=== PATIENT | male | born 1960 | race Caucasian/White ===

== ENCOUNTER → 2016-12-03 | Outpatient (CLI) | payer BC ==
--- NOTE | 2016-12-03 15:47 | US ---
EXAMINATION TYPE: US carotid duplex BILAT DATE OF EXAM: 12/03/2016 COMPARISON: US 2016 CLINICAL HISTORY: Right Mild Stenosis I65.21. Patient smokes cigars x years. EXAM MEASUREMENTS: RIGHT: Peak Systolic Velocity (PSV) cm/sec ----- Right CCA: 71.0 ----- Right ICA: 159.4 ----- Right ECA: 117.3 ICA/CCA ratio: 2.2 RIGHT: End Diastole cm/sec ----- Right CCA: 28.1 ----- Right ICA: 75.7 ----- Right ECA: 22.0 LEFT: Peak Systolic Velocity (PSV) cm/sec ----- Left CCA: 77.6 ----- Left ICA: 90.7 ----- Left ECA: 117.2 ICA/CCA ratio: 1.2 LEFT: End Diastole cm/sec ----- Left CCA: 21.5 ----- Left ICA: 37.8 ----- Left ECA: 23.3 VERTEBRALS (direction of flow): Right Vertebral: Antegrade Left Vertebral: Antegrade Rhythm: Normal Moderate intimal wall changes are noted at bilateral carotid bifurcation with abnormally elevated PSV at right ICA proximally. Turbulent flow is within the right proximal internal carotid artery distal to the atheromatous plaqui ng. Left internal carotid artery plaquing is also noted a some plaquing and intimal thickening is wit hin the bilateral common carotid arteries. IMPRESSION: 1. Atheromatous plaquing bilaterally. This can be compatible with flow-limiting stenosis between 50-6 9% in the right internal carotid artery and less than 50% left internal carotid artery. Correlate wit h the patient's symptoms. Criteria for Assigning % of Stenosis / Diameter reduction (Estimation based on the indirect measurements of the internal carotid artery velocities (ICA PSV). 1. Normal (no stenosis)=ICA PSV < 125 cm/s: ratio < 2.0: ICA EDV<40 cm/s. 2. Less than 50% stenosis=ICA PSV < 125 cm/s: ratio < 2.0: ICA EDV<40 cm/s. 3. 50 to 69% stenosis=ICA PSV of 125 to 230 cm/s: ration 2.0 ? 4.0: ICA EDV 40-100 cm/s. 4. Greater than 70% stenosis to near occlusion= ICA PSV > 230 cm/s: ratio > 4.0: ICA EDV > 100 cm/s. 5. Near occlusion= ICA PSV velocities may be low or undetectable: variable ratio and ICA EDV. 6. Total occlusion=unable to detect flow.
== END | disposition home or self-care (01) ==
LOC: RADUSWWP 14:08
PROVIDERS: ATTEND Family Medicine
DX: I65.23 Occlusion and stenosis of bilateral carotid arteries (principal)
CPT/HCPCS: 93880

== ENCOUNTER → 2018-12-13 | Outpatient (CLI) | payer BC ==
--- NOTE | 2018-12-14 07:10 | US ---
EXAMINATION TYPE: US carotid duplex BILAT DATE OF EXAM: 12/13/2018 COMPARISON: US 12/03/2016 CLINICAL HISTORY: I65.21Occlusion and Stenosis of Right Carotid. EXAM MEASUREMENTS: RIGHT: Peak Systolic Velocity (PSV) cm/sec ----- Right CCA: 66.9 ----- Right ICA: 268.4 ----- Right ECA: 137.8 ICA/CCA ratio: 4.0 RIGHT: End Diastole cm/sec ----- Right CCA: 19.7 ----- Right ICA: 115.1 ----- Right ECA: 24.7 LEFT: Peak Systolic Velocity (PSV) cm/sec ----- Left CCA: 89.7 ----- Left ICA: 123.7 ----- Left ECA: 122.1 ICA/CCA ratio: 1.4 LEFT: End Diastole cm/sec ----- Left CCA: 28.9 ----- Left ICA: 49.4 ----- Left ECA: 22.0 VERTEBRALS (direction of flow): Right Vertebral: Antegrade Left Vertebral: Antegrade Rhythm: Normal Severe atherosclerotic changes seen in right bulb and ICA suggestive of >70% stenosis. Left ICA shows moderate atherosclerotic changes without borderline velocities. IMPRESSION: 1. Increased degree of stenosis within the right internal carotid artery in comparison to the prior 2 017. There is now greater than 70% stenosis within the right internal carotid artery. 2. Borderline values that would indicate stenosis of 50-69% within the left internal carotid artery. Criteria for Assigning % of Stenosis / Diameter reduction (Estimation based on the indirect measurements of the internal carotid artery velocities (ICA PSV). 1. Normal (no stenosis)=ICA PSV < 125 cm/s: ratio < 2.0: ICA EDV<40 cm/s. 2. Less than 50% stenosis=ICA PSV < 125 cm/s: ratio < 2.0: ICA EDV<40 cm/s. 3. 50 to 69% stenosis=ICA PSV of 125 to 230 cm/s: ration 2.0 ? 4.0: ICA EDV 40-100 cm/s. 4. Greater than 70% stenosis to near occlusion= ICA PSV > 230 cm/s: ratio > 4.0: ICA EDV > 100 cm/s. 5. Near occlusion= ICA PSV velocities may be low or undetectable: variable ratio and ICA EDV. 6. Total occlusion=unable to detect flow.
== END | disposition home or self-care (01) ==
LOC: RADUSWWP 16:43
PROVIDERS: ATTEND Family Medicine
DX: I65.23 Occlusion and stenosis of bilateral carotid arteries (principal)
CPT/HCPCS: 93880

== ENCOUNTER 2019-01-24 09:43 | Inpatient (IN) | payer BC ==
[2019-01-24] MEDS ORDERED: HYDROmorphone 1 MG/ML 1 ML SYRINGE IVP STA (10:24)
[2019-01-24] MEDS ORDERED: ONDANSETRON 4 MG/2 ML VIAL IVP STA (10:24)
--- NOTE | 2019-01-24 10:27 | ED ---
General Adult HPI - General Chief complaint: Abdominal Pain Stated complaint: ABDOMINAL PAIN Time Seen by Provider: 01/24/19 09:55 Source: patient, RN notes reviewed, old records reviewed Mode of arrival: wheelchair Limitations: no limitations - History of Present Illness Initial comments: This is a 58-year-old male who presents to the emergency department complaining of right lower quadrant abdominal pain since Tuesday. Patient states he has been nauseous but no vomiting. Patient denies any fever chills per patient states he has been able to eat. Patient states he had one bout of diarrhea that was when he arrived to the emergency department. States she's only had an umbilical hernia surgery on his abdomen. Patient denies any back pain. Patient denies any dysuria hematuria urinary frequency. Patient denies chest pain difficulty breathing or shortness of breath. - Related Data Home Medications Medication Instructions Recorded Confirmed Aspirin 81 mg PO DAILY 02/25/17 01/24/19 Atenolol/Chlorthalidone 1 tab PO DAILY 02/25/17 01/24/19 [Atenolol-Chlorthalidone 50-25] Gemfibrozil [Lopid] 600 mg PO AC-BID 02/25/17 01/24/19 [place]-3 Fatty Acids/Fish Oil [Fish 1 cap PO HS 02/25/17 01/24/19 Oil 1,000 mg Softgel] Omeprazole [PriLOSEC] 20 mg PO AC-BRKFST 02/25/17 01/24/19 Simvastatin [Zocor] 40 mg PO DAILY 02/25/17 01/24/19 Hydrocodone/Acetaminophen [[place] 1 tab PO TID 01/24/19 01/24/19 7.5-325] [place]-3 Fatty Acids/Fish Oil [Fish 2 cap PO QAM 01/24/19 01/24/19 Oil 1,000 mg Softgel] Potassium Chloride ER [K-Dur 10] 10 meq PO DAILY 01/24/19 01/24/19 Sertraline [Zoloft] 50 mg PO DAILY 01/24/19 01/24/19 metFORMIN HCL ER [Glucophage Xr] 1,000 mg PO DAILY 01/24/19 01/24/19 Allergies Allergy/AdvReac Type Severity Reaction Status Date / Time Penicillins Allergy Unknown Verified 01/24/19 11:34 Childhood meperidine [From Demerol] AdvReac Nausea & Verified 01/24/19 11:34 Vomiting Review of Systems ROS Statement: Those systems with pertinent positive or pertinent negative responses have been documented in the HPI. ROS Other: All systems not noted in ROS Statement are negative. Past Medical History Past Medical History: COPD, Diabetes Mellitus, GERD/Reflux, Hyperlipidemia, Hypertension, Musculoskeletal Disorder Additional Past Medical History / Comment(s): Sciatica, recent bout of colitis- finishing antibiotic, "borderline" diabetic History of Any Multi-Drug Resistant Organisms: None Reported Past Surgical History: Hernia Repair Additional Past Surgical History / Comment(s): Colonoscopy Past Anesthesia/Blood Transfusion Reactions: Postoperative Nausea & Vomiting (PONV) Smoking Status: Current every day smoker Past Alcohol Use History: Occasional Past Drug Use History: None Reported - Past Family History Mother Family Medical History: No Reported History General Exam - General Exam Comments Initial Comments: GENERAL: Patient is well-developed and well-nourished. Patient is nontoxic and well- hydrated and is in moderate distress ENT: Neck is soft and supple. No significant lymphadenopathy is noted. Oropharynx is clear. Moist mucous membranes. Neck has full range of motion without eliciting any pain. EYES: The sclera were anicteric and conjunctiva were pink and moist. Extraocular movements were intact and pupils were equal round and reactive to light. Eyelids were unremarkable. PULMONARY: Unlabored respirations. Good breath sounds bilaterally. No audible rales rhonchi or wheezing was noted. CARDIOVASCULAR: There is a regular rate and rhythm without any murmurs gallops or rubs. ABDOMEN: Patient has right lower quadrant abdominal pain and rebound. SKIN: Skin is clear with no lesions or rashes and otherwise unremarkable. NEUROLOGIC: Patient is alert and oriented x3. Cranial nerves II through XII are grossly intact. Motor and sensory are also intact. Normal speech, volume and content. Symmetrical smile. MUSCULOSKELETAL: Normal extremities with adequate strength and full range of motion. No lower extremity swelling or edema. No calf tenderness. LYMPHATICS: No significant lymphadenopathy is noted PSYCHIATRIC: Normal psychiatric evaluation. Limitations: no limitations Course Vital Signs 01/24/19 09:51 Temperature 98.0 F Pulse Rate 89 Respiratory 18 Rate Blood Pressure 113/86 O2 Sat by Pulse 98 Oximetry Medical Decision Making - Medical Decision Making CAT scan of the pelvis shows diverticulitis with microperforation no signs of abscess. Appendix is normal. I started the patient on antibiotics. I spoke with Dr. Nolan agreed to admit the patient admitted the patient wrote admitting orders. - Lab Data Result diagrams: 01/24/19 10:30 01/24/19 10:30 Lab Results 01/24/19 01/24/19 01/24/19 Range/Units 10:30 10:30 10:30 WBC 11.0 H (3.8-10.6) k/uL RBC 5.30 (4.30-5.90) m/uL Hgb 17.6 H (13.0-17.5) gm/dL Hct 48.7 (39.0-53.0) % MCV 92.0 (80.0-100.0) fL MCH 33.3 (25.0-35.0) pg MCHC 36.2 (31.0-37.0) g/dL RDW 13.1 (11.5-15.5) % Plt Count 264 (150-450) k/uL Neutrophils % 82 % Lymphocytes % 12 % Monocytes % 4 % Eosinophils % 1 % Basophils % 0 % Neutrophils # 9.0 H (1.3-7.7) k/uL Lymphocytes # 1.3 (1.0-4.8) k/uL Monocytes # 0.4 (0-1.0) k/uL Eosinophils # 0.1 (0-0.7) k/uL Basophils # 0.0 (0-0.2) k/uL Sodium 138 (137-145) mmol/L Potassium 3.5 (3.5-5.1) mmol/L Chloride 102 (98-107) mmol/L Carbon Dioxide 23 (22-30) mmol/L Anion Gap 13 mmol/L BUN 11 (9-20) mg/dL Creatinine 0.60 L (0.66-1.25) mg/dL Est GFR (CKD-EPI)AfAm >90 (>60 ml/min/1.73 sqM) Est GFR (CKD-EPI)NonAf >90 (>60 ml/min/1.73 sqM) Glucose 128 H (74-99) mg/dL Plasma Lactic Acid Wes 1.3 (0.7-2.0) mmol/L Calcium 9.8 (8.4-10.2) mg/dL Total Bilirubin 1.2 (0.2-1.3) mg/dL AST 27 (17-59) U/L ALT 21 (21-72) U/L Alkaline Phosphatase 122 (38-126) U/L Total Protein 7.8 (6.3-8.2) g/dL Albumin 4.4 (3.5-5.0) g/dL Amylase 42 (30-110) U/L Lipase 67 (23-300) U/L Urine Color Urine Appearance (Clear) Urine pH (5.0-8.0) Ur Specific [place] (1.001-1.035) Urine Protein (Negative) Urine Glucose (UA) (Negative) Urine Ketones (Negative) Urine Blood (Negative) Urine Nitrite (Negative) Urine Bilirubin (Negative) Urine Urobilinogen (<2.0) mg/dL Ur Leukocyte Esterase (Negative) Urine RBC (0-5) /hpf Urine WBC (0-5) /hpf 01/24/19 Range/Units 10:57 WBC (3.8-10.6) k/uL RBC (4.30-5.90) m/uL Hgb (13.0-17.5) gm/dL Hct (39.0-53.0) % MCV (80.0-100.0) fL MCH (25.0-35.0) pg MCHC (31.0-37.0) g/dL RDW (11.5-15.5) % Plt Count (150-450) k/uL Neutrophils % % Lymphocytes % % Monocytes % % Eosinophils % % Basophils % % Neutrophils # (1.3-7.7) k/uL Lymphocytes # (1.0-4.8) k/uL Monocytes # (0-1.0) k/uL Eosinophils # (0-0.7) k/uL Basophils # (0-0.2) k/uL Sodium (137-145) mmol/L Potassium (3.5-5.1) mmol/L Chloride (98-107) mmol/L Carbon Dioxide (22-30) mmol/L Anion Gap mmol/L BUN (9-20) mg/dL Creatinine (0.66-1.25) mg/dL Est GFR (CKD-EPI)AfAm (>60 ml/min/1.73 sqM) Est GFR (CKD-EPI)NonAf (>60 ml/min/1.73 sqM) Glucose (74-99) mg/dL Plasma Lactic Acid Wes (0.7-2.0) mmol/L Calcium (8.4-10.2) mg/dL Total Bilirubin (0.2-1.3) mg/dL AST (17-59) U/L ALT (21-72) U/L Alkaline Phosphatase (38-126) U/L Total Protein (6.3-8.2) g/dL Albumin (3.5-5.0) g/dL Amylase (30-110) U/L Lipase (23-300) U/L Urine Color Yellow Urine Appearance Clear (Clear) Urine pH 7.5 (5.0-8.0) Ur Specific [place] 1.013 (1.001-1.035) Urine Protein 1+ H (Negative) Urine Glucose (UA) Negative (Negative) Urine Ketones Negative (Negative) Urine Blood Negative (Negative) Urine Nitrite Negative (Negative) Urine Bilirubin Negative (Negative) Urine Urobilinogen <2.0 (<2.0) mg/dL Ur Leukocyte Esterase Negative (Negative) Urine RBC 1 (0-5) /hpf Urine WBC <1 (0-5) /hpf Disposition Clinical Impression: Diverticulitis of colon with perforation Disposition: ADMITTED IP TO THIS HOSP Referrals: Josee Rahman DO [Primary Care Provider] - 1-2 days Time of Disposition: 11:50
[2019-01-24 10:37] LABS: Basophils % (A) 0 %; Eosinophils # (A) 0.1 k/uL (0-0.7); Eosinophils % (A) 1 %; HCT 48.7 % (39.0-53.0); HGB 17.6 gm/dL (13.0-17.5); Lymphocytes # (A) 1.3 k/uL (1.0-4.8); Lymphocytes % (A) 12 %; MCH 33.3 pg (25.0-35.0); MCHC 36.2 g/dL (31.0-37.0); Mean Platelet Volume 5.8; Monocytes # (A) 0.4 k/uL (0-1.0); Monocytes % (A) 4 %; Neutrophils % (A) 82 %; Platelet Count 264 k/uL (150-450); RDW 13.1 % (11.5-15.5)
[2019-01-24 10:57] LABS: ALT 21 U/L (21-72); AST 27 U/L (17-59); African American GFR (CKD) >90 (>60 ml/min/1.73 sqM); Albumin 4.4 g/dL (3.5-5.0); Alkaline Phosphatase 122 U/L (38-126); Amylase 42 U/L (30-110); Anion Gap 13 mmol/L; Blood Urea Nitrogen 11 mg/dL (9-20); Calcium 9.8 mg/dL (8.4-10.2); Carbon Dioxide 23 mmol/L (22-30); Chloride 102 mmol/L (98-107); Glucose 128 mg/dL (74-99); Potassium 3.5 mmol/L (3.5-5.1); Sodium 138 mmol/L (137-145); Total Bilirubin 1.2 mg/dL (0.2-1.3); Total Protein 7.8 g/dL (6.3-8.2)
[2019-01-24 11:09] LABS: Appearance,Urine Clear (Clear); Bilirubin,Urine Negative (Negative); Blood,Urine Negative (Negative); Color,Urine Yellow; Glucose,Urine (UA) Negative (Negative); Ketones,Urine Negative (Negative); Leukocyte Esterase,Urine Negative (Negative); Nitrite,Urine Negative (Negative); PH, Urine 7.5 (5.0-8.0); Protein,Urine 1+ (Negative); RBC,Urine 1 /hpf (0-5); Specific Gravity,Urine 1.013 (1.001-1.035); Urobilinogen,Urine <2.0 mg/dL (<2.0)
--- NOTE | 2019-01-24 11:46 | CT ---
EXAMINATION TYPE: CT abdomen pelvis w con DATE OF EXAM: 01/24/2019 COMPARISON: Prior CT dated 10/01/2011 HISTORY: Abdominal pain CT DLP: 983.6 mGycm Automated exposure control for dose reduction was used. TECHNIQUE: Helical acquisition of images from the lung bases through the pelvis have been completed. CONTRAST: Performed without Oral Contrast and with IV Contrast, patient injected with 100 mL of Isovue 300. FINDINGS: LUNG BASES: Bandlike areas of increased attenuation at the lung bases likely reflect scarring, no ple ural or pericardial effusion. There are coronary artery calcifications. AORTA: No significant abnormality is appreciated. LIVER/GB: Liver shows low attenuation. Gallbladder is normal.. PANCREAS: No significant abnormality is seen. SPLEEN: No significant abnormality is seen. ADRENALS: No significant abnormality is seen. KIDNEYS: Punctate nonobstructive calculus present at the midpole the right kidney measures 3 mm, left kidney upper pole shows a small cortical cyst measuring 12 mm REPRODUCTIVE ORGANS: Prostate shows associated calcification BOWEL: The appendix is normal. The sigmoid colon shows abnormal wall thickening within the pelvis, t here is pericolonic inflammatory change present. Punctate foci of air are present in an extraluminal location. Duodenal diverticulum is present with air-fluid level. FREE AIR: No Free Air visible. ASCITES: None visible. PELVIC ADENOPATHY: None visualized. RETROPERITONEAL ADENOPATHY: No Retroperitoneal Adenopathy visible. URINARY BLADDER: Urinary bladder is not distended and shows a thickened wall, difficult to exclude c ystitis versus possible chronic bladder outlet obstruction, lack of distention OSSEOUS STRUCTURES: Bilateral spondylolysis present L5, there is anterolisthesis grade 1 L5-S1, loss of disc height and disc bulge compatible with degenerative disc disease, there is multilevel spondylo sis IMPRESSION: POSSIBLE DIVERTICULITIS WITH MICROPERFORATION, NO EVIDENT ABSCESS. POSSIBLE COLITIS. NONOBSTRUCTIVE R IGHT NEPHROLITHIASIS. PROBABLE HEPATIC STEATOSIS.
[2019-01-24] MEDS ORDERED: LEVOFLOXACIN 750MG-D5W PMX 750 MG in DEXTROSE/WATER 1 150ML.BAG IVPB STA (11:49)
[2019-01-24] MEDS ORDERED: SODIUM CHLORIDE 0.9% 1,000 ML IV ONE (11:51)
[2019-01-24] MEDS ORDERED: ONDANSETRON 4 MG/2 ML VIAL IVP PRN (11:54)
[2019-01-24] MEDS: HYDROmorphone 1 MG/ML 1 ML SYRINGE IVP PRN ×3 (14:23→22:37)
[2019-01-24] MEDS: SODIUM CHLORIDE 0.9% 1,000 ML IV SCH ×2 (14:37→22:39)
[2019-01-24] MEDS ORDERED: LORazepam 2 MG/ML INJ IV PRN ×3 (17:24)
[2019-01-24] MEDS: THIAMINE 100 MG TAB PO SCH (18:07)
[2019-01-24] MEDS: INSULIN ASPART (NovoLOG) 100 UNIT/ML VIAL SQ SCH ×2 (18:12→20:58)
[2019-01-24 18:13] LABS: Glucose,Whole Blood 95 mg/dL (75-99)
[2019-01-24] MEDS: PANTOPRAZOLE 40 MG/10 ML VIAL IVP SCH (20:17)
[2019-01-24] MEDS: NICOTINE 21MG/24HR PATCH TRANSDERM SCH (20:17)
[2019-01-24 20:46] VITALS: RESP 16
[2019-01-24 20:54] LABS: Glucose,Whole Blood 101 mg/dL (75-99)
--- NOTE | 2019-01-24 22:14 | P.HPIM ---
History of Present Illness H&P Date: 01/24/19 Chief Complaint: Abdominal pain Patient is a 58-year-old male with a known history of hypertension, diabetes type 2 [id number], bilateral diabetic peripheral neuropathy, diverticulosis, GERD, hearing disorder/deafness and history of lower GI bleed and chronic back pain came to ER with complaints of abdominal pain mainly right lower quadrant for the past 2-3 days. Patient did have diarrhea about a week ago. Currently diarrhea resolved now. Does have subjective fevers and chills last night and patient has been having worsening renal which made him to come to ER. Denied any blood in the stool. No dysuria or hematuria recur Denied any chest pain or shortness of breath. No cough or sputum production. Patient does have chronic low back pain. Patient does smoke on a daily basis. Patient does have a history of colonoscopy and benign polypectomy. WBC 11.0 CT of the abdomen pelvis showed possible diverticulitis with microperforation. No evident abscess. Possible colitis. Nonobstructive right nephrolithiasis. Possible hepatic steatosis. Review of Systems Constitutional: Patient does have subjective fever or chills . No generalized weakness or weight loss. Abdomen: Patient does have nausea and abdominal pain. No diarrhea. No vomiting.. Cardiovascular: Patient denies any chest pain or short of breath no palpitations. Respiratory: patient denied any cough is from production. No shortness of breath Neurologic: Patient denied any numbness or tingling headache. Musculoskeletal: Patient denies any complaints of joint swelling or deformity. Skin: Negative Psychiatric: Negative Endocrine: No heat or cold intolerance. No recent weight gain. Genitourinary: No dysuria or hematuria. All other 14 point ROS negative except the above Past Medical History Past Medical History: COPD, Diabetes Mellitus, GERD/Reflux, GI Bleed, Hearing Disorder / Deafness, Hyperlipidemia, Hypertension, Musculoskeletal Disorder Additional Past Medical History / Comment(s): NIDDM type II, neuropathy bilateral feet, diverticular disease, cecal polyp-benign, lower GI bleed, chronic low back pain (herniated discs) with R sided sciatica, R ruptured eardrum-just finished antibiotic. History of Any Multi-Drug Resistant Organisms: None Reported Past Surgical History: Hernia Repair Additional Past Surgical History / Comment(s): Colonoscopies/polypectomy, umbilical hernia repair, back injections. Past Anesthesia/Blood Transfusion Reactions: Postoperative Nausea & Vomiting (PONV) Smoking Status: Current every day smoker - Past Family History Mother Family Medical History: Vascular Disorder Additional Family Medical History / Comment(s): Mother from a renal aneurysm at the age of 67yrs. Father Family Medical History: Diabetes Mellitus Additional Family Medical History / Comment(s): Father at the age of 79yrs. Medications and Allergies Home Medications Medication Instructions Recorded Confirmed Type Aspirin 81 mg PO DAILY 02/25/17 01/24/19 History Atenolol/Chlorthalidone 1 tab PO DAILY 02/25/17 01/24/19 History [Atenolol-Chlorthalidone 50-25] Gemfibrozil [Lopid] 600 mg PO AC-BID 02/25/17 01/24/19 History [place]-3 Fatty Acids/Fish Oil [Fish 1 cap PO HS 02/25/17 01/24/19 History Oil 1,000 mg Softgel] Omeprazole [PriLOSEC] 20 mg PO AC-BRKFST 02/25/17 01/24/19 History Simvastatin [Zocor] 40 mg PO DAILY 02/25/17 01/24/19 History Hydrocodone/Acetaminophen [[place] 1 tab PO TID 01/24/19 01/24/19 History 7.5-325] [place]-3 Fatty Acids/Fish Oil [Fish 2 cap PO QAM 01/24/19 01/24/19 History Oil 1,000 mg Softgel] Potassium Chloride ER [K-Dur 10] 10 meq PO DAILY 01/24/19 01/24/19 History Sertraline [Zoloft] 50 mg PO DAILY 01/24/19 01/24/19 History metFORMIN HCL ER [Glucophage Xr] 1,000 mg PO DAILY 01/24/19 01/24/19 History Allergies Allergy/AdvReac Type Severity Reaction Status Date / Time Penicillins Allergy Unknown Verified 01/24/19 11:34 Childhood meperidine [From Demerol] AdvReac Nausea & Verified 01/24/19 11:34 Vomiting Physical Exam Vitals: Vital Signs Temp Pulse Pulse Resp BP BP Pulse Ox 01/24/19 20:46 98.2 F 62 16 120/74 95 01/24/19 13:10 97.9 F 52 L 14 116/73 96 01/24/19 12:50 124/95 95 01/24/19 12:40 124/95 94 L 01/24/19 12:30 98.1 F 66 16 138/98 95 01/24/19 11:50 119/86 93 L 01/24/19 11:30 114/90 94 L 01/24/19 10:53 126/86 97 01/24/19 09:51 98.0 F 89 18 113/86 98 Intake and Output 01/24/19 01/24/19 01/24/19 06:59 14:59 22:59 Other: # Voids 1 Weight 77.111 kg PHYSICAL EXAMINATION: Patient is lying in the bed comfortably, no acute distress, awake alert and oriented.. HEENT: Normocephalic. Neck is supple. Pupils reactive. Nostrils clear. Oral cavity is moist. Ears reveal no drainage. Neck reveals no JVD, carotid bruits, or thyromegaly. CHEST EXAMINATION: Trachea is central. Symmetrical expansion. Bibasilar diminished air entry. Lung penny clear to auscultation and percussion. CARDIAC: Normal S1, S2 with no gallops. No murmurs ABDOMEN: Soft. Right lower quadrant mild tenderness. No guarding no rigidity. Bowel sounds normal. No organomegaly. No abdominal bruits. Extremities: reveal no edema. No clubbing or cyanosis Neurologically awake, alert, oriented x3 with well-coordinated movements. No focal deficits noted Skin: No rash or skin lesions. Psychiatric: Coperative. Nonsuicidal Musculoskeletal: No joint swelling or deformity. Normal range of motion. Results CBC & Chem 7: 01/24/19 10:30 01/24/19 10:30 Labs: Abnormal Lab Results - Last 24 Hours (Table) 01/24/19 01/24/19 01/24/19 Range/Units 10:30 10:30 10:57 WBC 11.0 H (3.8-10.6) k/uL Hgb 17.6 H (13.0-17.5) gm/dL Neutrophils # 9.0 H (1.3-7.7) k/uL Creatinine 0.60 L (0.66-1.25) mg/dL Glucose 128 H (74-99) mg/dL POC Glucose (mg/dL) (75-99) mg/dL Urine Protein 1+ H (Negative) 01/24/19 Range/Units 20:43 WBC (3.8-10.6) k/uL Hgb (13.0-17.5) gm/dL Neutrophils # (1.3-7.7) k/uL Creatinine (0.66-1.25) mg/dL Glucose (74-99) mg/dL POC Glucose (mg/dL) 101 H (75-99) mg/dL Urine Protein (Negative) Thrombosis Risk Factor Assmnt - DVT/VTE Prophylaxis DVT/VTE Prophylaxis: Pharmacologic Prophylaxis ordered - Choose All That Apply Any of the Below Risk Factors Present?: Yes Each Factor Represents 1 point: Abnormal pulmonary function (COPD), Age 41-60 years, Obesity (BMI >25) Other Risk Factors: No Other congenital or acquired thrombophilia - If yes, enter type in comment: No Thrombosis Risk Factor Assessment Total Risk Factor Score: 3 Thrombosis Risk Factor Assessment Level: Moderate Risk Assessment and Plan Assessment: Acute diverticulitis with possible microperforation. No abscess noted in the CT abdomen and pelvis. History of diverticulosis COPD currently not in exacerbation Diabetes type 2 [id number]-afaitjdtu GERD History of colon polypectomybenign History of lower GI bleed Chronic low back pain Diabetic peripheral neuropathy Hypertension Hyperlipidemia Hearing disorder/deafness Ongoing nicotine addiction DVT prophylaxis with heparin subcu Plan: Patient will be continued on IV hydration. Continue with antibiotics in the form of Levaquin. Flagyl to be added. Follow-up blood culture reports. Continue the pain management and follow closely. General surgery and gastroenterology was consulted. Discussed with his at bedside in detail. Smoking cessation has been counseled. Time with Patient: Greater than 30
[2019-01-24] MEDS: metroNIDAZOLE-NS PMX 500 MG in SALINE 1 100ML.BAG IVPB SCH (23:08)
[2019-01-24] MEDS: HEPARIN SODIUM,PORCINE 5,000 UNIT/ML 1 ML VIAL SQ SCH (23:08)
[2019-01-25] MEDS: HYDROmorphone 1 MG/ML 1 ML SYRINGE IVP PRN ×2 (04:06→08:05)
[2019-01-25 07:31] LABS: Glucose,Whole Blood 91 mg/dL (75-99)
[2019-01-25] MEDS: INSULIN ASPART (NovoLOG) 100 UNIT/ML VIAL SQ SCH ×2 (07:57→12:39)
[2019-01-25] MEDS: HEPARIN SODIUM,PORCINE 5,000 UNIT/ML 1 ML VIAL SQ SCH (08:01)
[2019-01-25] MEDS: NICOTINE 21MG/24HR PATCH TRANSDERM SCH (08:01)
[2019-01-25] MEDS: PANTOPRAZOLE 40 MG/10 ML VIAL IVP SCH (08:01)
[2019-01-25] MEDS: metroNIDAZOLE-NS PMX 500 MG in SALINE 1 100ML.BAG IVPB SCH (08:01)
[2019-01-25] MEDS: THIAMINE 100 MG TAB PO SCH (08:01)
[2019-01-25] MEDS: SODIUM CHLORIDE 0.9% 1,000 ML IV SCH (08:02)
[2019-01-25 08:38] LABS: Basophils % (A) 0 %; Eosinophils # (A) 0.2 k/uL (0-0.7); Eosinophils % (A) 2 %; HCT 45.1 % (39.0-53.0); Lymphocytes # (A) 1.3 k/uL (1.0-4.8); Lymphocytes % (A) 16 %; MCH 33.8 pg (25.0-35.0); MCHC 35.5 g/dL (31.0-37.0); MCV 95.3 fL (80.0-100.0); Mean Platelet Volume 5.8; Monocytes # (A) 0.4 k/uL (0-1.0); Monocytes % (A) 4 %; Neutrophils # (A) 6.2 k/uL (1.3-7.7); Neutrophils % (A) 76 %; Platelet Count 216 k/uL (150-450); RBC 4.73 m/uL (4.30-5.90); RDW 13.2 % (11.5-15.5); WBC 8.2 k/uL (3.8-10.6)
[2019-01-25] MEDS ORDERED: CHLORTHALIDONE 25 MG TAB PO SCH (09:00)
[2019-01-25] MEDS ORDERED: ATENOLOL 50 MG TAB PO SCH (09:00)
[2019-01-25 09:05] LABS: African American GFR (CKD) >90 (>60 ml/min/1.73 sqM); Anion Gap 9 mmol/L; Blood Urea Nitrogen 14 mg/dL (9-20); Calcium 8.6 mg/dL (8.4-10.2); Carbon Dioxide 27 mmol/L (22-30); Chloride 103 mmol/L (98-107); Glucose 82 mg/dL (74-99); Potassium 3.2 mmol/L (3.5-5.1); Sodium 139 mmol/L (137-145)
[2019-01-25 11:54] LABS: Glucose,Whole Blood 102 mg/dL (75-99)
--- NOTE | 2019-01-25 11:55 | P.GSCN ---
<Sandy Liu - Last Filed: 01/25/19 11:53> History of Present Illness Consult date: 01/25/19 Reason for Consult: Diverticulitis with microperforation Requesting physician: Corrina Moody History of present illness: CHIEF COMPLAINT: Diverticulitis with microperforation HISTORY OF PRESENT ILLNESS: 58-year-old male who presented to the emergency room with a chief complaint of abdominal pain. Patient reports he has been having lower abdominal pain for the last 2-3 days. General surgery was consulted for further evaluation. Patient examined this morning at the bedside with Dr. Thomas. Patient reports his pain to his abdomen has resolved. He is passing flatus. Denies nausea or vomiting. He reports having an umbilical hernia repair with Dr. Finney in the past. He also reports having a colonoscopy in [address] Montes. PAST MEDICAL HISTORY: See list. PAST SURGICAL HISTORY: See list. MEDICATIONS: See list. ALLERGIES: See list. SOCIAL HISTORY: No illicit drug use. REVIEW OF SYSTEMS: CONSTITUTIONAL: Denies fever or chills. HEENT: Denies blurred vision, vision changes, or eye pain. Denies hemoptysis ENDOCRINE: Denies heat or cold intolerance. CARDIOVASCULAR: Denies chest pain or pressure. RESPIRATORY: No shortness of breath. GASTROINTESTINAL: See HPI for pertinent findings. NEURO: Denies history of seizures. PSYCH: No depression or suicidal ideation HEMATOLOGIC: Denies bleeding disorders. LYMPHATIC: The patient denies any lumps and bumps around the neck. GENITOURINARY: Denies any blood in urine or increased urinary frequency. MUSCULOSKELETAL: Denies myalgias. Denies joint swelling. Denies decreased range of motion beyond patients baseline. SKIN: Denies pruitis. Denies rash. PHYSICAL EXAM: VITAL SIGNS: Reviewed GENERAL: Well-developed in no acute distress. HEENT: No sclera icterus. Extraocular movements grossly intact. Moist buccal mucosa. Head is atraumatic, normocephalic. Hears conversational speech. No nasal drainage. NECK: Supple without lymphadenopathy. CHEST: Non-labored respirations and equal bilateral excursions. CARDIOVASCULAR: Regular rate with regular rhythm. Palpable 2+ radial pulses. ABDOMEN: Soft. Nondistended. Nontender with palpation. No peritoneal signs. MUSCULOSKELETAL: No clubbing, cyanosis or edema. NEUROLOGIC: No focal or lateralizing signs. Cranial nerves II through XII grossly intact. PSYCH: Appropriate affect. Alert and oriented to person, place and time. SKIN: Well perfused. Good skin turgor. LABORATORY DATA: WBC 8.2. Hemoglobin 16.0. Platelet count 216. Sodium 139. Potassium 3.2. BUN 14. Creatinine 0.59. IMAGING: CT abdomen and pelvis: Diverticulitis with microperforation. No evident abs cess. Possible colitis. Nonobstructive right nephrolithiasis. Probable hepatic steatosis. ASSESSMENT: 1. Abdominal pain 2. Acute diverticulitis with microperforation PLAN: 1. Begin clear liquid diet 2. Continue antibiotics 3. No surgical intervention recommended at this time 4. If patient tolerates liquid diet, he may be discharged home this afternoon from a surgical standpoint. Patient instructed to continue full liquid diet for an additional 48-72 hours. Recommend 7 day course of antibiotics at discharge. Nurse practitioner note has been reviewed by physician. Signing provider agrees with the documented findings, assessment, and plan of care. Past Medical History Past Medical History: COPD, Diabetes Mellitus, GERD/Reflux, GI Bleed, Hearing Disorder / Deafness, Hyperlipidemia, Hypertension, Musculoskeletal Disorder Additional Past Medical History / Comment(s): NIDDM type II, neuropathy bilateral feet, diverticular disease, cecal polyp-benign, lower GI bleed, chronic low back pain (herniated discs) with R sided sciatica, R ruptured eard rum-just finished antibiotic. History of Any Multi-Drug Resistant Organisms: None Reported Past Surgical History: Hernia Repair Additional Past Surgical History / Comment(s): Colonoscopies/polypectomy, umbilical hernia repair, back injections. Past Anesthesia/Blood Transfusion Reactions: Postoperative Nausea & Vomiting (PONV) Smoking Status: Current every day smoker - Past Family History Mother Family Medical History: Vascular Disorder Additional Family Medical History / Comment(s): Mother from a renal aneurysm at the age of 67yrs. Father Family Medical History: Diabetes Mellitus Additional Family Medical History / Comment(s): Father at the age of 79yrs. Medications and Allergies Home Medications Medication Instructions Recorded Confirmed Type Aspirin 81 mg PO DAILY 02/25/17 01/24/19 History Atenolol/Chlorthalidone 1 tab PO DAILY 02/25/17 01/24/19 History [Atenolol-Chlorthalidone 50-25] Gemfibrozil [Lopid] 600 mg PO AC-BID 02/25/17 01/24/19 History Holcomb-3 Fatty Acids/Fish Oil [Fish 1 cap PO HS 02/25/17 01/24/19 History Oil 1,000 mg Softgel] Omeprazole [PriLOSEC] 20 mg PO AC-BRKFST 02/25/17 01/24/19 History Simvastatin [Zocor] 40 mg PO DAILY 02/25/17 01/24/19 History Hydrocodone/Acetaminophen [Milton 1 tab PO TID 01/24/19 01/24/19 History 7.5-325] Holcomb-3 Fatty Acids/Fish Oil [Fish 2 cap PO QAM 01/24/19 01/24/19 History Oil 1,000 mg Softgel] Potassium Chloride ER [K-Dur 10] 10 meq PO DAILY 01/24/19 01/24/19 History Sertraline [Zoloft] 50 mg PO DAILY 01/24/19 01/24/19 History metFORMIN HCL ER [Glucophage Xr] 1,000 mg PO DAILY 01/24/19 01/24/19 History Ciprofloxacin HCl [Cipro] 500 mg PO Q12HR #14 tablet 01/25/19 Rx metroNIDAZOLE [Flagyl] 500 mg PO TID #21 tab 01/25/19 Rx Allergies Allergy/AdvReac Type Severity Reaction Status Date / Time Penicillins Allergy Unknown Verified 01/24/19 11:34 Childhood meperidine [From Demerol] AdvReac Nausea & Verified 01/24/19 11:34 Vomiting Surgical - Exam Vital Signs Temp Pulse Resp BP Pulse Ox 98.0 F 89 18 113/86 98 01/24/19 09:51 01/24/19 09:51 01/24/19 09:51 01/24/19 09:51 01/24/19 09:51 Results - Labs 01/25/19 08:03 01/25/19 08:03 Abnormal Lab Results - Last 24 Hours (Table) 01/24/19 01/25/19 Range/Units 20:43 08:03 Potassium 3.2 L (3.5-5.1) mmol/L Creatinine 0.59 L (0.66-1.25) mg/dL POC Glucose (mg/dL) 101 H (75-99) mg/dL Diabetes panel 01/25/19 Range/Units 08:03 Sodium 139 (137-145) mmol/L Potassium 3.2 L (3.5-5.1) mmol/L Chloride 103 (98-107) mmol/L Carbon Dioxide 27 (22-30) mmol/L BUN 14 (9-20) mg/dL Creatinine 0.59 L (0.66-1.25) mg/dL Glucose 82 (74-99) mg/dL Calcium 8.6 (8.4-10.2) mg/dL Calcium panel 01/25/19 Range/Units 08:03 Calcium 8.6 (8.4-10.2) mg/dL Pituitary panel 01/25/19 Range/Units 08:03 Sodium 139 (137-145) mmol/L Potassium 3.2 L (3.5-5.1) mmol/L Chloride 103 (98-107) mmol/L Carbon Dioxide 27 (22-30) mmol/L BUN 14 (9-20) mg/dL Creatinine 0.59 L (0.66-1.25) mg/dL Glucose 82 (74-99) mg/dL Calcium 8.6 (8.4-10.2) mg/dL Adrenal panel 01/25/19 Range/Units 08:03 Sodium 139 (137-145) mmol/L Potassium 3.2 L (3.5-5.1) mmol/L Chloride 103 (98-107) mmol/L Carbon Dioxide 27 (22-30) mmol/L BUN 14 (9-20) mg/dL Creatinine 0.59 L (0.66-1.25) mg/dL Glucose 82 (74-99) mg/dL Calcium 8.6 (8.4-10.2) mg/dL <Karyn Thomas - Last Filed: 01/25/19 20:31> History of Present Illness History of present illness: Patient seen and evaluated with above. CT of the abdomen pelvis independently reviewed by me without evidence of diffuse free air or small bowel obstruction. Localized perforation along the sigmoid colon noted. Overall patient does report moderate improvement of his diverticulitis. He may be discharged home with liquid diet with at least 1 week course of antibiotics with follow-up in the office within 1-2 weeks. Surgical - Exam Vital Signs Temp Pulse Resp BP Pulse Ox 98.0 F 89 18 113/86 98 01/24/19 09:51 01/24/19 09:51 01/24/19 09:51 01/24/19 09:51 01/24/19 09:51 Results - Labs 01/25/19 08:03 01/25/19 08:03 Abnormal Lab Results - Last 24 Hours (Table) 01/24/19 01/25/19 01/25/19 Range/Units 20:43 08:03 11:47 Potassium 3.2 L (3.5-5.1) mmol/L Creatinine 0.59 L (0.66-1.25) mg/dL POC Glucose (mg/dL) 101 H 102 H (75-99) mg/dL Microbiology - Last 24 Hours (Table) 01/24/19 12:36 Blood Culture - Preliminary Blood No Growth after 24 hours Diabetes panel 01/25/19 Range/Units 08:03 Sodium 139 (137-145) mmol/L Potassium 3.2 L (3.5-5.1) mmol/L Chloride 103 (98-107) mmol/L Carbon Dioxide 27 (22-30) mmol/L BUN 14 (9-20) mg/dL Creatinine 0.59 L (0.66-1.25) mg/dL Glucose 82 (74-99) mg/dL Calcium 8.6 (8.4-10.2) mg/dL Calcium panel 01/25/19 Range/Units 08:03 Calcium 8.6 (8.4-10.2) mg/dL Pituitary panel 01/25/19 Range/Units 08:03 Sodium 139 (137-145) mmol/L Potassium 3.2 L (3.5-5.1) mmol/L Chloride 103 (98-107) mmol/L Carbon Dioxide 27 (22-30) mmol/L BUN 14 (9-20) mg/dL Creatinine 0.59 L (0.66-1.25) mg/dL Glucose 82 (74-99) mg/dL Calcium 8.6 (8.4-10.2) mg/dL Adrenal panel 01/25/19 Range/Units 08:03 Sodium 139 (137-145) mmol/L Potassium 3.2 L (3.5-5.1) mmol/L Chloride 103 (98-107) mmol/L Carbon Dioxide 27 (22-30) mmol/L BUN 14 (9-20) mg/dL Creatinine 0.59 L (0.66-1.25) mg/dL Glucose 82 (74-99) mg/dL Calcium 8.6 (8.4-10.2) mg/dL
[2019-01-25] MEDS ORDERED: LEVOFLOXACIN 750MG-D5W PMX 750 MG in DEXTROSE/WATER 1 150ML.BAG IVPB SCH (12:00)
[2019-01-25] MEDS ORDERED: POTASSIUM CHLORIDE ER 20 MEQ TAB.ER PO STA (12:23)
[2019-01-25 15:27] VITALS: BP 101/67; PULSE 61; TEMP 97.8
[2019-01-25 15:54] VITALS: BMI 27.4
== END 2019-01-25 14:49 | disposition home or self-care (01) | DRG 392 ==
LOC: EC 09:43 → 4MS4W 11:51
PROVIDERS: ADMIT Internal Medicine; ATTEND Internal Medicine
DX: K57.20 Diverticulitis of large intestine with perforation and abscess without bleeding (principal); E11.42 Type 2 diabetes mellitus with diabetic polyneuropathy; E78.5 Hyperlipidemia, unspecified; F17.200 Nicotine dependence, unspecified, uncomplicated; G89.29 Other chronic pain; H91.90 Unspecified hearing loss, unspecified ear; I10 Essential (primary) hypertension; J44.9 Chronic obstructive pulmonary disease, unspecified; K21.9 Gastro-esophageal reflux disease without esophagitis; N20.0 Calculus of kidney; Z79.82 Long term (current) use of aspirin; Z79.84 Long term (current) use of oral hypoglycemic drugs; Z79.899 Other long term (current) drug therapy; Z83.3 Family history of diabetes mellitus; Z87.19 Personal history of other diseases of the digestive system; Z79.891 Long term (current) use of opiate analgesic; Z88.5 Allergy status to narcotic agent; Z88.0 Allergy status to penicillin
CPT/HCPCS: 36415; 74177; 80048; 80053; 81001; 82150; 83605; 83690; 85025; 87040; 96374; 96375; 99285

== ENCOUNTER 2019-04-30 07:20 | Day surgery (SDC) | payer BC ==
[2019-04-26 09:35] VITALS: BMI 27.4
[~2019-04-30 07:20] MED LIST: LIDOCAINE 1% 20 ML VIAL (10MG/ML) FOR IV START INTRADERMA PRN; MIDAZOLAM 2 MG/2 ML VIAL IV PRN
[2019-04-30 07:54] VITALS: TEMP 98.5
[2019-04-30] MEDS: LACTATED RINGERS 1,000 ML IV SCH ×2 (07:55→08:01)
[2019-04-30] MEDS ORDERED: ONDANSETRON 4 MG/2 ML VIAL ONE (08:01)
[2019-04-30] MEDS ORDERED: PROPOFOL 10 MG/ML 20 ML VIAL IV ONE (08:01)
[2019-04-30 08:04] LABS: Glucose,Whole Blood 144 mg/dL (75-99)
--- NOTE | 2019-04-30 08:45 | P.PCN ---
Date of Procedure: 04/30/19 Description of Procedure: BRIEF HISTORY: Patient is a 58-year-old male who presents for outpatient colonoscopy for history of diverticulitis/diverticulosis. Patient reports treatment for an episode of diverticulitis. Last colonoscopy in 2017 significant for polypectomy. PROCEDURE PERFORMED: Colonoscopy with polypectomy. PREOPERATIVE DIAGNOSIS: Diverticulosis, history of diverticulitis, history of polypectomy, last colonoscopy 2017. ESTIMATED BLOOD LOSS: Minimal. IV sedation per Anesthesia. PROCEDURE: After informed consent was obtained, the patient, was brought into the endoscopy unit. IV sedation was administered by Anesthesia under continuous monitoring. Digital rectal examination was normal. Initially the Olympus CF-190 flexible video colonoscope was then inserted in the rectum, gradually advanced into the cecum without any difficulty. Careful examination was performed as the scope was gradually being withdrawn. Ileocecal valve and the appendiceal orifice were visualized and appeared normal. Prep was excellent. Mucosa of the cecum, ascending colon, transverse colon, descending colon, sigmoid colon, and rectum appeared normal. Patient had a large amount of colon polyps throughout the entire colon both small and large. Diminutive 3 mm rectal polyp removed with cold forcep polypectomy. Retroflexion was performed in the rectum and no lesions were seen. The patient tolerated the procedure well. IMPRESSION: Pandiverticulosis, with large amounts of small and large diverticula in the left colon. Diminutive rectal polyp removed with cold forcep polypectomy. RECOMMENDATIONS: Findings of this examination were discussed with the patient and his . Okay to resume high-fiber diet. Dietary modifications discussed with the patient. Await pathology from polypectomy. Would recommend repeat colonoscopy in 5-7 years pending findings from polypectomy.
[2019-04-30 09:06] VITALS: BP 138/93; PULSE 85; RESP 17
== END 2019-04-30 09:30 | disposition home or self-care (01) ==
LOC: ORWHC2ENDO 07:20
PROVIDERS: ATTEND Internal Medicine
DX: Z12.11 Encounter for screening for malignant neoplasm of colon (principal); K62.1 Rectal polyp; K57.30 Diverticulosis of large intestine without perforation or abscess without bleeding; Z86.010 Personal history of colon polyps; I10 Essential (primary) hypertension; E78.5 Hyperlipidemia, unspecified; J44.9 Chronic obstructive pulmonary disease, unspecified; E11.42 Type 2 diabetes mellitus with diabetic polyneuropathy; H91.90 Unspecified hearing loss, unspecified ear; M25.512 Pain in left shoulder; K21.9 Gastro-esophageal reflux disease without esophagitis; F17.200 Nicotine dependence, unspecified, uncomplicated; Z88.0 Allergy status to penicillin; Z88.5 Allergy status to narcotic agent; Z79.899 Other long term (current) drug therapy; Z79.891 Long term (current) use of opiate analgesic; Z79.82 Long term (current) use of aspirin; Z98.890 Other specified postprocedural states; Z87.19 Personal history of other diseases of the digestive system; Z91.89 Other specified personal risk factors, not elsewhere classified
CPT/HCPCS: 88305; 45380; J2405; J2704

== ENCOUNTER → 2019-05-31 | Outpatient (CLI) | payer BC ==
--- NOTE | 2019-05-31 15:11 | XR ---
Cervical spine HISTORY: Trauma 2 months prior, pain 5 views of the cervical spine Surgical clips are present within the soft tissues of the right neck. Cervical vertebral bodies show preserved height. Bone mineralization is mildly reduced. Minimal retrolisthesis grade 1 C2-3, anterol ateral listhesis grade 1 C3-4, C4-5. There is multilevel spondylosis. Loss of disc height present C5- 6 and C3-4, C4-5. There is loss of disc height at C3-4, C4-5 and C5-6. C7-T1 not included on exam. No significant foraminal encroachment. IMPRESSION: Degenerative disc disease, postop changes.
== END | disposition home or self-care (01) ==
LOC: RADXRYALE 14:23
PROVIDERS: ATTEND Nurse Practitioner
DX: M50.30 Other cervical disc degeneration, unspecified cervical region (principal); Z98.890 Other specified postprocedural states
CPT/HCPCS: 72050

== ENCOUNTER → 2019-09-07 | Outpatient (CLI) | payer OTHER ==
--- NOTE | 2019-09-09 18:55 | US ---
EXAMINATION TYPE: US carotid duplex BILAT DATE OF EXAM: 09/07/2019 COMPARISON: Ultrasound 12/13/2018 CLINICAL HISTORY: 59-year-old male I65.21 Occlusion and stenosis of right carotid art. Right side end arterectomy in February 2019 TECHNIQUE: Carotid duplex ultrasound examination. Indirect Doppler criteria was utilized. FINDINGS: EXAM MEASUREMENTS: RIGHT: Peak Systolic Velocity (PSV) cm/sec ----- Right CCA: 107.0 ----- Right ICA: 96.5 ----- Right ECA: 137.2 ICA/CCA ratio: 0.9 RIGHT: End Diastole cm/sec ----- Right CCA: 22.7 ----- Right ICA: 40.9 ----- Right ECA: 18.9 LEFT: Peak Systolic Velocity (PSV) cm/sec ----- Left CCA: 81.5 ----- Left ICA: 100.0 ----- Left ECA: 117.2 ICA/CCA ratio: 1.2 LEFT: End Diastole cm/sec ----- Left CCA: 24.6 ----- Left ICA: 40.5 ----- Left ECA: 23.3 VERTEBRALS (direction of flow): Right Vertebral: Antegrade Left Vertebral: Antegrade Rhythm: Normal Moderate amount of plaque visualized left side, elevated velocities right ECA IMPRESSION: No hemodynamically significant internal carotid artery stenosis on either side. Measured velocities are significantly improved as compared to the 12/13/2018 exam. Clinically correlat e. Criteria for Assigning % of Stenosis / Diameter reduction (Estimation based on the indirect measurements of the internal carotid artery velocities (ICA PSV). 1. Normal (no stenosis)=ICA PSV < 125 cm/s: ratio < 2.0: ICA EDV<40 cm/s. 2. Less than 50% stenosis=ICA PSV < 125 cm/s: ratio < 2.0: ICA EDV<40 cm/s. 3. 50 to 69% stenosis=ICA PSV of 125 to 230 cm/s: ration 2.0 ? 4.0: ICA EDV 40-100 cm/s. 4. Greater than 70% stenosis to near occlusion= ICA PSV > 230 cm/s: ratio > 4.0: ICA EDV > 100 cm/s. 5. Near occlusion= ICA PSV velocities may be low or undetectable: variable ratio and ICA EDV. 6. Total occlusion=unable to detect flow.
== END | disposition home or self-care (01) ==
LOC: RADUSWWP 15:35
PROVIDERS: ATTEND Family Medicine
DX: I65.21 Occlusion and stenosis of right carotid artery (principal)
CPT/HCPCS: 93880

== ENCOUNTER → 2019-09-10 | Outpatient (CLI) | payer OTHER ==
--- NOTE | 2019-09-10 11:58 | XR ---
EXAMINATION TYPE: XR cervical spine comp DATE OF EXAM: 09/10/2019 COMPARISON: NONE HISTORY: Pain TECHNIQUE: Four views are submitted. FINDINGS: The odontoid is intact. There are no compression deformities. The prevertebral soft tissue structur es are within normal limits. Multilevel hypertrophic and degenerative change. Surgical clips in the soft tissues of neck. Diffuse osteopenia. Calcifications in the soft tissue the left neck noted. IMPRESSION: 1. Mild multilevel degenerative disc disease with diffuse osteopenia. 2. Calcifications in the soft tissues on left neck likely related carotid artery calcification..
--- NOTE | 2019-09-10 11:59 | XR ---
EXAMINATION TYPE: XR chest 2V DATE OF EXAM: 09/10/2019 COMPARISON: NONE TECHNIQUE: PA and lateral views submitted. HISTORY: Pain FINDINGS: The lungs are clear and there is no pneumothorax, pleural effusion, or focal pneumonia. Hypertrophi c and degenerative change of the spine. Biapical pleural thickening. No overt failure. Heart size nor mal. Bilateral pleural-based thickening. Atherosclerotic change of the aorta. IMPRESSION: 1. No acute process.
--- NOTE | 2019-09-10 12:00 | XR ---
EXAMINATION TYPE: XR skull limited DATE OF EXAM: 09/10/2019 COMPARISON: NONE HISTORY: Pain TECHNIQUE: 2 view submitted FINDINGS: Osseous structures intact. No acute fracture. No dislocation. There are lucencies involving the calvarium. IMPRESSION: 1. No acute fracture. 2. Rounded lucencies involving the calvarium recommend CT scan of the head to assess for intraosseous lesion versus parietal foramina
== END | disposition home or self-care (01) ==
LOC: RADXRYALE 11:34
PROVIDERS: ATTEND Family Medicine
DX: M50.30 Other cervical disc degeneration, unspecified cervical region (principal); M85.88 Other specified disorders of bone density and structure, other site
CPT/HCPCS: 70250; 71046; 72050

== ENCOUNTER → 2019-11-15 | Outpatient (CLI) | payer OTHER ==
[2019-11-15 11:43] LABS: African American GFR (CKD) >90 (>60 ml/min/1.73 sqM); Blood Urea Nitrogen 22 mg/dL (9-20); Non-African American GFR(CKD) >90 (>60 ml/min/1.73 sqM)
--- NOTE | 2019-11-15 12:31 | CT ---
EXAMINATION TYPE: CT angio head neck DATE OF EXAM: 11/15/2019 COMPARISON: None HISTORY: Headaches and neck pain. CT DLP: 1512.5 mGycm CONTRAST: Performed without and with IV Contrast, patient injected with 65 mL of Isovue 370. Combination Contrast CTA cervical carotids and [place] CTA cervical carotids with 3-D recons truction Contrast CTA of the cervical carotids was performed 3-D reconstruction imaging obtained at a separate workstation. Right carotid system: Mild plaque is seen of the right common carotid artery. There is mild plaque a lso noted at the carotid bulb and proximal ICA. No significant diameter reduction. ECA is patent. Right vertebral artery appears unremarkable. Left carotid system: Mild plaque is seen of the left common carotid artery. There is moderate plaque also noted at the carotid bulb and proximal ICA. Estimated diameter reduction is approximately 60-7 0%. ECA is patent. Left vertebral artery appears unremarkable. IMPRESSION: 1. Estimated diameter reduction left ICA of 60-70%. No hemodynamically significant stenosis right ICA . CTA false pass of [place] with 3-D reconstruction Contrast CTA of the false pass of [place] was performed 3-D reconstruction imaging obtained at a separate workstation. Vertebrobasilar system as well as intracranial portions of the internal carotid arteries and their ma aixa tributaries are patent. I do not see evidence for sizable aneurysm or vascular malformation. Pl ease note MRI provides greater sensitivity and specificity. Visualized brain appears grossly unremar kable. IMPRESSION: 1. No significant abnormality.
== END | disposition home or self-care (01) ==
LOC: RADCTMAIN 10:49
PROVIDERS: ATTEND Orthopaedic Surgery
DX: M54.2 Cervicalgia (principal); R51 Headache; Z88.5 Allergy status to narcotic agent
CPT/HCPCS: 82565; 84520; 70496; 70498; 36415; Q9967

== ENCOUNTER → 2020-07-14 | Outpatient (CLI) | payer OTHER ==
--- NOTE | 2020-07-15 07:20 | ECHOF ---
Referral Reason:I10 Hypertension MEASUREMENTS -------- HEIGHT: 167.6 cm WEIGHT: 88.5 kg BP: 108/66 RVIDd: 3.1 cm (< 3.3) IVSd: 1.3 cm (0.6 - 1.1) LVIDd: 4.6 cm (3.9 - 5.3) LVPWd: 1.2 cm (0.6 - 1.1) IVSs: 2.0 cm LVIDs: 2.7 cm LVPWs: 1.5 cm LA Diam: 3.7 cm (2.7 - 3.8) Ao Diam: 2.9 cm (2.0 - 3.7) AV Cusp: 1.7 cm (1.5 - 2.6) MV EXCURSION: 18.438 mm (> 18.000) MV EF SLOPE: 36 mm/s (70 - 150) EPSS: 0.1 cm MV E Luis: 0.82 m/s MV DecT: 242 ms MV A Luis: 0.84 m/s MV E/A Ratio: 0.98 FINDINGS -------- Sinus rhythm. This was a technically adequate study. The left ventricular size is normal. There is mild concentric left ventricular hypertrophy. Overa ll left ventricular systolic function is normal with, an EF between 55 - 60 %. The right ventricle is normal in size. The left atrium is normal in size. The right atrial size is normal. Lipomatous Hypertrophy of the atrial septum is present The aortic valve is trileaflet, and appears structurally normal. No aortic stenosis or regurgitation. The mitral valve is normal. There is trace to mild mitral regurgitation. The tricuspid valve appears structurally normal. No regurgitation noted There is no pulmonic regurgitation present. The aortic root size is normal. Normal inferior vena cava with normal inspiratory collapse consistent with estimated right atrial pre ssure of 5 mmHg. There is no pericardial effusion. CONCLUSIONS -------- 1. The left ventricular size is normal. 2. There is mild concentric left ventricular hypertrophy. 3. Overall left ventricular systolic function is normal with, an EF between 55 - 60 %. 4. The left atrium is normal in size. 5. Lipomatous Hypertrophy of the atrial septum is present 6. The aortic valve is trileaflet, and appears structurally normal. No aortic stenosis or regurgitati on. 7. There is trace to mild mitral regurgitation. 8. There is no pericardial effusion. ENVIRONMENTAL AIR SPECIALIST: Carolina Phan RDCS
== END | disposition home or self-care (01) ==
LOC: RADECHMAIN 14:00
PROVIDERS: ATTEND Family Medicine
DX: I34.0 Nonrheumatic mitral (valve) insufficiency (principal)
CPT/HCPCS: 93306

== ENCOUNTER → 2020-10-03 | Outpatient (CLI) | payer OTHER ==
--- NOTE | 2020-10-05 09:01 | US ---
EXAMINATION TYPE: US carotid duplex BILAT DATE OF EXAM: 10/03/2020 COMPARISON: NONE CLINICAL HISTORY: I65.23 Occlusion and stenosis of bilateral. History of right endarterectomy EXAM MEASUREMENTS: RIGHT: Peak Systolic Velocity (PSV) cm/sec ----- Right CCA: 66.3 ----- Right ICA: 86.8 ----- Right ECA: 150.5 ICA/CCA ratio: 1.3 RIGHT: End Diastole cm/sec ----- Right CCA: 21.4 ----- Right ICA: 38.9 ----- Right ECA: 21.7 LEFT: Peak Systolic Velocity (PSV) cm/sec ----- Left CCA: 90.5 ----- Left ICA: 136.1 ----- Left ECA: 127.0 ICA/CCA ratio: 1.5 LEFT: End Diastole cm/sec ----- Left CCA: 32.2 ----- Left ICA: 55.3 ----- Left ECA: 17.2 VERTEBRALS (direction of flow): Right Vertebral: Antegrade Left Vertebral: Antegrade Rhythm: Normal IMPRESSION: Elevated velocities - right prox ECA, left mid ICA and left prox ECA, no significant ad nosis. Criteria for Assigning % of Stenosis / Diameter reduction (Estimation based on the indirect measurements of the internal carotid artery velocities (ICA PSV). 1. Normal (no stenosis)=ICA PSV < 125 cm/s: ratio < 2.0: ICA EDV<40 cm/s. 2. Less than 50% stenosis=ICA PSV < 125 cm/s: ratio < 2.0: ICA EDV<40 cm/s. 3. 50 to 69% stenosis=ICA PSV of 125 to 230 cm/s: ration 2.0 ? 4.0: ICA EDV 40-100 cm/s. 4. Greater than 70% stenosis to near occlusion= ICA PSV > 230 cm/s: ratio > 4.0: ICA EDV > 100 cm/s. 5. Near occlusion= ICA PSV velocities may be low or undetectable: variable ratio and ICA EDV. 6. Total occlusion=unable to detect flow.
== END | disposition home or self-care (01) ==
LOC: RADUSWWP 16:18
PROVIDERS: ATTEND Surgery Vascular Surgery
DX: I65.23 Occlusion and stenosis of bilateral carotid arteries (principal)
CPT/HCPCS: 93880

== ENCOUNTER → 2021-10-05 | Outpatient (CLI) | payer OTHER ==
--- NOTE | 2021-10-05 12:25 | US ---
EXAMINATION TYPE: US carotid duplex BILAT DATE OF EXAM: 10/05/2021 COMPARISON: US: 10/03/20 CLINICAL HISTORY: I65.21 OCCLUSION AND STENOSIS OF RT CAROTID ARTERY. Endarterectomy on right side 3 years ago. EXAM MEASUREMENTS: RIGHT: Peak Systolic Velocity (PSV) cm/sec ----- Right CCA: 77.7 ----- Right ICA: 78.1 ----- Right ECA: 123 ICA/CCA ratio: 1.0 RIGHT: End Diastole cm/sec ----- Right CCA: 19.9 ----- Right ICA: 33.4 ----- Right ECA: 26.7 LEFT: Peak Systolic Velocity (PSV) cm/sec ----- Left CCA: 92.5 ----- Left ICA: 120 ----- Left ECA: 137 ICA/CCA ratio: 1.3 LEFT: End Diastole cm/sec ----- Left CCA: 28.0 ----- Left ICA: 47.6 ----- Left ECA: 34.3 VERTEBRALS (direction of flow): Right Vertebral: Antegrade Left Vertebral: Antegrade Rhythm: Normal Moderate amount of plaque seen on bilateral carotid arteries, but no significant stenosis visualized based on velocity. IMPRESSION: 1. Atheromatous plaquing without significant flow-limiting stenosis. Criteria for Assigning % of Stenosis / Diameter reduction (Estimation based on the indirect measurements of the internal carotid artery velocities (ICA PSV). 1. Normal (no stenosis)=ICA PSV < 125 cm/s: ratio < 2.0: ICA EDV<40 cm/s. 2. Less than 50% stenosis=ICA PSV < 125 cm/s: ratio < 2.0: ICA EDV<40 cm/s. 3. 50 to 69% stenosis=ICA PSV of 125 to 230 cm/s: ration 2.0 ? 4.0: ICA EDV 40-100 cm/s. 4. Greater than 70% stenosis to near occlusion= ICA PSV > 230 cm/s: ratio > 4.0: ICA EDV > 100 cm/s. 5. Near occlusion= ICA PSV velocities may be low or undetectable: variable ratio and ICA EDV. 6. Total occlusion=unable to detect flow.
== END | disposition home or self-care (01) ==
LOC: RADUSWWP 10:55
PROVIDERS: ATTEND Family Medicine
DX: I65.23 Occlusion and stenosis of bilateral carotid arteries (principal)
CPT/HCPCS: 93880

== ENCOUNTER → 2021-10-09 | Outpatient (CLI) | payer OTHER ==
[2021-10-09 18:14] LABS: Rheumatoid Factor, Qnt <10 IU/mL (0-15)
[2021-10-09 21:28] LABS: Anti-DNA, DS unit <1.0 IU/mL; Anti-Smith Ab Interp NEGATIVE (NEGATIVE); Cyclic Citrull Pep IgG Unit <0.5 U/mL; Cyclic Citrullinated Pep IgG NEGATIVE (NEGATIVE); DNA Double-Stranded NEGATIVE (NEGATIVE); JO-1 IgG Antibody <0.2 AI; Scleroderma SC-70 Ab <0.2 AI
== END | disposition home or self-care (01) ==
LOC: LABWHC1 12:23
PROVIDERS: ATTEND Nurse Practitioner Family
DX: M25.50 Pain in unspecified joint (principal)
CPT/HCPCS: 36415; 83516; 86038; 86140; 86200; 86225; 86235; 86431

== ENCOUNTER → 2022-09-17 | Outpatient (CLI) | payer MEDICARE, OTHER ==
--- NOTE | 2022-09-17 11:54 | US ---
EXAMINATION TYPE: US carotid duplex BILAT DATE OF EXAM: 09/17/2022 COMPARISON: 10/05/22 CLINICAL INDICATION: Male, 62 years old with history of I65.23; plaque TECHNIQUE: Carotid duplex ultrasound examination. Indirect Doppler criteria was utilized. FINDINGS: EXAM MEASUREMENTS: RIGHT: Peak Systolic Velocity (PSV) cm/sec ----- Right CCA: 54.0 ----- Right ICA: 64.6 ----- Right ECA: 90.2 ICA/CCA ratio: 1.2 RIGHT: End Diastole cm/sec ----- Right CCA: 13.2 ----- Right ICA: 25.8 ----- Right ECA: 22.6 LEFT: Peak Systolic Velocity (PSV) cm/sec ----- Left CCA: 76.1 ----- Left ICA: 96.5 ----- Left ECA: 109 ICA/CCA ratio: 1.3 LEFT: End Diastole cm/sec ----- Left CCA: 20.5 ----- Left ICA: 36.7 ----- Left ECA: 30.9 VERTEBRALS (direction of flow): Right Vertebral: Antegrade Left Vertebral: Antegrade Rhythm: Normal TERMITE RENEWAL INSPECTOR NOTES: No elevated velocities, bilateral plaque IMPRESSION: Less than 50% stenosis of the bilateral carotid bifurcation. Criteria for Assigning % of Stenosis / Diameter reduction (Estimation based on the indirect measurements of the internal carotid artery velocities (ICA PSV). 1. Normal (no stenosis)=ICA PSV < 125 cm/s: ratio < 2.0: ICA EDV<40 cm/s. 2. Less than 50% stenosis=ICA PSV < 125 cm/s: ratio < 2.0: ICA EDV<40 cm/s. 3. 50 to 69% stenosis=ICA PSV of 125 to 230 cm/s: ration 2.0 ? 4.0: ICA EDV 40-100 cm/s. 4. Greater than 70% stenosis to near occlusion= ICA PSV > 230 cm/s: ratio > 4.0: ICA EDV > 100 cm/s. 5. Near occlusion= ICA PSV velocities may be low or undetectable: variable ratio and ICA EDV. 6. Total occlusion=unable to detect flow.
== END | disposition home or self-care (01) ==
LOC: RADUSWWP 10:39
PROVIDERS: ATTEND Surgery Vascular Surgery
DX: I65.23 Occlusion and stenosis of bilateral carotid arteries (principal)
CPT/HCPCS: 93880

== ENCOUNTER → 2022-10-14 | Outpatient (CLI) | payer MEDICARE, OTHER ==
--- NOTE | 2022-10-17 10:18 | CT ---
EXAMINATION TYPE: CT chest wo con DATE OF EXAM: 10/14/2022 COMPARISON: None HISTORY: personal tobacco use, emphysema, CT screening for smoker. CT DLP: 650 mGycm, Automated exposure control for dose reduction was used. CONTRAST: Performed injected with 0 mL of Isovue 300. TECHNIQUE: Axial images were obtained at 5 mm thick sections. Reconstructed images are reviewed on [employer] computer in the coronal plane. FINDINGS: Portion of the thyroid visualized is normal. There is a punctate calcification along the pleural right margin, series 4 image 27. Some streak opac ities in the lateral right lung base may be some atelectasis or scarring. No enlarged mediastinal or hilar adenopathy is evident. The ascending aorta diameter at the level o f the main pulmonary artery is 4.0 cm. The main pulmonary artery diameter at the bifurcation is 2.6 cm. Coronary artery calcification is present. Limited CT sections are obtained through the upper abdomen. Abdomen is essentially unremarkable. IMPRESSIONS: 1. No suspicious changes for primary or metastatic neoplasm chest. 2. This was performed as a standard noncontrast CT chest protocol. Low-dose CT screening of chest for screening can be performed at the referring physician's request.
== END | disposition home or self-care (01) ==
LOC: RADCTMAIN 16:03
PROVIDERS: ATTEND Internal Medicine Hematology & Oncology
DX: J43.9 Emphysema, unspecified (principal); D75.1 Secondary polycythemia; G47.33 Obstructive sleep apnea (adult) (pediatric); M10.9 Gout, unspecified; E78.5 Hyperlipidemia, unspecified; Z87.891 Personal history of nicotine dependence
CPT/HCPCS: 71250

== ENCOUNTER → 2024-09-04 | Outpatient (CLI) | payer MEDICARE ==
--- NOTE | 2024-09-04 11:52 | US ---
EXAMINATION TYPE: US carotid duplex BILAT DATE OF EXAM: 09/04/2024 COMPARISON: US 2022 CLINICAL INDICATION: Male, 64 years old with history of I65.29 OCCLUSION AND STENOSIS OF UNSPECIFIED CAROT; History of right endarterectomy. Dizziness and weakness. TECHNIQUE: Grayscale, color Doppler and spectral Doppler evaluation of the bilateral carotid systems and vertebral arteries. Indirect Doppler criteria was utilized. FINDINGS: EXAM MEASUREMENTS: RIGHT: Peak Systolic Velocity (PSV) cm/sec ----- Right CCA: 56.5 ----- Right ICA: 50.3 ----- Right ECA: 137.0 ICA/CCA ratio: 0.9 RIGHT: End Diastole cm/sec ----- Right CCA: 21.6 ----- Right ICA: 27.1 ----- Right ECA: 32.2 LEFT: Peak Systolic Velocity (PSV) cm/sec ----- Left CCA: 135.0 ----- Left ICA: 179.0 ----- Left ECA: 184.0 ICA/CCA ratio: 1.3 LEFT: End Diastole cm/sec ----- Left CCA: 26.5 ----- Left ICA: 38.2 ----- Left ECA: 31.4 VERTEBRALS (direction of flow): Right Vertebral: Antegrade Left Vertebral: Antegrade Rhythm: Normal IMPRESSION: Slight elevated velocities proximal left ICA suggests a mild proximal ICA stenosis. No hemodynamicall y significant internal carotid artery stenosis on either side. Criteria for Assigning % of Stenosis / Diameter reduction (Estimation based on the indirect measurements of the internal carotid artery velocities (ICA PSV). 1. Normal (no stenosis)=ICA PSV < 180 cm/s: ratio < 2.0: ICA EDV<40 cm/s. 2. Less than 50% stenosis=ICA PSV < 180 cm/s: ratio < 2.0: ICA EDV<40 cm/s. 3. 50 to 69% stenosis=ICA PSV of 180 to 230 cm/s: ration 2.0 ? 4.0: ICA EDV 40-100 cm/s. PSV 125-180 cm/sec and ICA/CCA PSV Ratio ? 2.0 is also consistent with 50-69% stenosis 4. Greater than 70% stenosis to near occlusion= ICA PSV > 230 cm/s: ratio > 4.0: ICA EDV > 100 cm/s. 5. Near occlusion= ICA PSV velocities may be low or undetectable: variable ratio and ICA EDV. 6. Total occlusion=unable to detect flow. [facility], Workstation: [facility], 09/04/2024 11:49 AM
== END | disposition home or self-care (01) ==
LOC: RADUSWWP 10:01
PROVIDERS: ATTEND Surgery
DX: I65.23 Occlusion and stenosis of bilateral carotid arteries (principal)
CPT/HCPCS: 93880